=== PATIENT | female | born 1980 | race Caucasian/White ===

== ENCOUNTER 2020-05-06 12:32 | Inpatient (IN) | payer OTHER ==
[~2020-05-06] VITALS: Ht 147.3 cm; Wt 66.5 kg
[2020-05-06 13:38] LABS: EOSINOPHILS % (AUTO) 11.8 % (1.0-6.0); HEMATOCRIT 29.6 % (36-46); LYMPHOCYTES # (AUTO) 1.8 K/uL (1.0-4.8); LYMPHOCYTES % (AUTO) 27.4 % (22.0-44.0); MEAN CORPUSCULAR HEMOGLOBIN 17.1 pg (26.0-34.0); MEAN CORPUSCULAR HGB CONC 30.5 G/dL (31.0-37.0); MEAN CORPUSCULAR VOLUME 56 fL (80-100); MONOCYTES # (AUTO) 0.5 K/uL (0.1-1.0); MONOCYTES % (AUTO) 7.5 % (2.0-9.0); NEUTROPHILS # (AUTO) 3.5 K/uL (1.8-7.7); NEUTROPHILS % (AUTO) 51.3 % (40.0-70.0); PLATELET COUNT (AUTO) 336 K/uL (150-450); RED BLOOD CELL COUNT(AUTO) 5.27 MIL/uL (4.00-5.20); RED CELL DISTRIBUTION WIDTH 20.1 % (11.5-14.5)
[2020-05-06] MEDS ORDERED: ACETAMINOPHEN 325 MG TABLET PO PRN ×2 (13:45)
[2020-05-06] MEDS ORDERED: ONDANSETRON HCL 4 MG/2 ML VIAL IVP PRN (13:45)
[2020-05-06] MEDS ORDERED: MAGNESIUM HYDROXIDE SUSPENSION 30 ML UDCUP PO PRN (13:45)
[2020-05-06] MEDS ORDERED: 0.9% SODIUM CHLORIDE 10 ML SYRINGE IVP PRN (13:45)
[2020-05-06 13:48] LABS: ANION GAP 9 mmol/L (8-16); CARBON DIOXIDE 28 mmol/L (22-29); CHLORIDE 105 mmol/L (98-107); CREATININE 0.74 mg/dL (0.60-1.30); GLUCOSE,RANDOM 122 mg/dL (70-110); POTASSIUM 3.4 mmol/L (3.5-5.1); SODIUM SERUM 142 mmol/L (136-145); UREA NITROGEN, BLOOD 8 mg/dL (7-18)
[2020-05-06 13:49] LABS: CALCIUM, TOTAL 8.8 mg/dL (8.8-10.5); GLOMERULAR FILTR. RATE CALC > 60 mL/min (>60)
[2020-05-06 14:00] LABS: ALANINE AMINOTRANSFERASE 28 U/L (12-78); ALBUMIN 3.1 g/dL (3.4-5.0); ALKALINE PHOSPHATASE 111 U/L (46-116); ASPARTATE AMINOTRANSFERASE 28 U/L (15-37); BILIRUBIN,TOTAL 0.6 mg/dL (0.1-1.0); HCG,QUANTITATIVE < 1 mIU/mL (0-6); TOTAL PROTEIN, SERUM 7.6 g/dL (6.4-8.2)
[2020-05-06 20:20] VITALS: BP 121/76
[2020-05-07 03:40] VITALS: BP 107/70
[2020-05-07] MEDS: FAMOTIDINE 20 MG TABLET PO SCH (08:18)
[2020-05-07 08:41] VITALS: BP 106/71
[2020-05-07 16:08] VITALS: BP 107/66
[2020-05-07 20:15] VITALS: BP 114/63
[2020-05-07 22:49] LABS: ANION GAP 9 mmol/L (8-16); CARBON DIOXIDE 27 mmol/L (22-29); CHLORIDE 106 mmol/L (98-107); CREATININE 0.53 mg/dL (0.60-1.30); GLOMERULAR FILTR. RATE CALC > 60 mL/min (>60); GLUCOSE,RANDOM 102 mg/dL (70-110); POTASSIUM 3.8 mmol/L (3.5-5.1); SODIUM SERUM 142 mmol/L (136-145); UREA NITROGEN, BLOOD 11 mg/dL (7-18)
[2020-05-08 05:40] VITALS: BP 110/62
[2020-05-08 08:21] VITALS: BP 102/70
[2020-05-08] MEDS: FAMOTIDINE 20 MG TABLET PO SCH (09:03)
[2020-05-08 15:15] VITALS: BP 110/55
[2020-05-08 20:46] VITALS: BP 124/65
[2020-05-09 05:07] VITALS: BP 116/59
[2020-05-09] MEDS: FAMOTIDINE 20 MG TABLET PO SCH (08:03)
[2020-05-09 08:08] VITALS: BP 109/54
[2020-05-09 08:55] LABS: HIV 1-2 SCREEN 4TH GEN W/RFLX Non Reactive (Non Reactive)
[2020-05-09 17:27] VITALS: BP 110/60
[2020-05-09 20:00] VITALS: BP 106/94
[2020-05-10 04:00] VITALS: BP 92/49
[2020-05-10] MEDS: FAMOTIDINE 20 MG TABLET PO SCH (08:50)
[2020-05-10 08:59] VITALS: BP 105/58
[2020-05-10 16:17] VITALS: BP 103/68
[2020-05-10 20:11] VITALS: BP 101/62
[2020-05-11 05:16] VITALS: BP 102/71
[2020-05-11 08:21] VITALS: BP 115/68
[2020-05-11] MEDS: FAMOTIDINE 20 MG TABLET PO SCH (08:30)
[2020-05-11 16:51] VITALS: BP 100/61
[2020-05-11 19:33] VITALS: BP 103/72
[2020-05-12 04:24] VITALS: BP 96/53
[2020-05-12 08:19] VITALS: BP 104/56
[2020-05-12] MEDS: FAMOTIDINE 20 MG TABLET PO SCH (08:19)
[2020-05-12 15:37] VITALS: BP 107/55
[2020-05-12 16:22] LABS: QUANTIFERON+, Nil Value 0.03 IU/mL; QUANTIFERON+,Mitogen Value 3.51 IU/mL; QUANTIFERON+,TB1 Antigen Value 4.15 IU/mL; QUANTIFERON, TB GOLD PLUS Positive (Negative)
[2020-05-12 20:15] VITALS: BP 106/53
[2020-05-13 04:44] VITALS: BP 111/64
[2020-05-13 08:14] VITALS: BP 103/61
[2020-05-13] MEDS: FAMOTIDINE 20 MG TABLET PO SCH (08:23)
[2020-05-13] MEDS ORDERED: ACET-3207 PO (11:07)
[2020-05-13] MEDS ORDERED: MOM30 PO (11:07)
== END 2020-05-13 13:20 | DRG 204 ==
LOC: EMS 12:34 → 6S 13:35
PROVIDERS: ADMIT Internal Medicine; ATTEND Internal Medicine
DX: R91.8 Other nonspecific abnormal finding of lung field (principal); R05 Cough; R50.9 Fever, unspecified; Z20.828 Contact with and (suspected) exposure to other viral communicable diseases; Z79.899 Other long term (current) drug therapy
CPT/HCPCS: 71250; 86480; 87015; 87206; 87389; 87556; 87798; 36415-L1; 36415-TC; 71045-TC; U0003-CS